=== PATIENT | male | born 1975 | race Hispanic/Latino ===

== ENCOUNTER 2017-09-23 23:39 | Emergency (ER) | payer BC ==
[~2017-09-23] VITALS: Ht 188 cm; Wt 104.3 kg
[~2017-09-23 23:39] MED LIST: ATIVAN1 MG PO
[2017-09-24] MEDS ORDERED: OMEPRAZOLE20 MG PO (02:21)
--- NOTE | 2017-09-24 14:34 | EKG ---
[facility] [address] [place], [place] [address] Signed Normal sinus rhythm Normal ECG Confirmed by MELISA URIBE MD ([id number]) on 09/24/2017 2:34:05 PM Electronically Signed By: MELISA URIBE MD 09/24/17 1434 PATIENT NAME: TAWNYA GALLEGOS Electrocardiogram DATE OF : 75 PHYSICIAN: MELISA URIBE MD REPORT #: [id number] REPORT IS CONFIDENTIAL AND NOT TO BE RELEASED WITHOUT AUTHORIZATION
== END 2017-09-24 02:32 | disposition home or self-care (01) ==
LOC: ED 23:39
DX: R07.9 Chest pain, unspecified (principal); F41.9 Anxiety disorder, unspecified; F17.200 Nicotine dependence, unspecified, uncomplicated; Z79.899 Other long term (current) drug therapy
CPT/HCPCS: 71045; 80053; 84484; 85025; 93005; 93010; 96374; 96375; 99284; J2270; J2405

== ENCOUNTER 2023-10-29 15:47 | Inpatient (IN) | payer OTHER ==
[~2023-10-29] VITALS: Ht 188 cm; Wt 133.0 kg
[~2023-10-29 15:47] MED LIST changes: +OMEPRAZOLE20 MG PO
--- OUTSIDE RECORDS SUMMARY | 2023-10-29 15:48 | XMS ---
PreManage Notification: TAWNYA GALLEGOS [employer] Set Up Operator Events No recent Security Events currently on file CRITERIA MET - [facility] - 2 Visits in 30 Days CARE PROVIDERS HILARIO ROSENBERG Physician Human Resources Executive Current PHONE: Unknown Nolberto has no Care Guidelines for this patient. EAlice VISIT COUNT (12 MO.) [address] TOTAL 4 NOTE: Visits indicate total known visits. ED/UCC VISIT TRACKING (12 MO.) 10/29/2023 15:47 [facility] [place] TYPE: Emergency COMPLAINT: - FOOT PAIN 10/29/2023 14:50 [facility] TYPE: Emergency COMPLAINT: - FOOT INJURY DIAGNOSES: - FOOT INJURY 06/26/2023 22:56 [facility] TYPE: Emergency DIAGNOSES: - Constipation, unspecified - Abdominal Pain, Constipation 05/15/2023 11:32 [facility] [place] TYPE: Emergency DIAGNOSES: - Local infection of the skin and subcutaneous tissue, unspecified - Other acute osteomyelitis, left ankle and foot - Type 2 diabetes mellitus with other skin complications - Type 2 diabetes mellitus with other specified complication - FOOT INJURY INPATIENT VISIT TRACKING (12 MO.) 05/15/2023 11:32 [facility] [place] TYPE: Medical Surgical DIAGNOSES: - 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
[2023-10-29] MEDS ORDERED: CEFTRIAXONE/SODIUM CHLORIDE 1 GM/100 ML PIGGYBACK IV ONE (18:00)
[2023-10-29 18:18] LABS: BASOPHILS 0.2 % (0-2); EOSINOPHILS 0.3 % (0-6); HEMATOCRIT 46.6 % (35.0-50.0); LYMPHOCYTES 27.4 % (24-44); MCH 32.2 (27-36); MCHC 34.4 g/dl (30-36); MCV 93.7 fl (81-99); MONOCYTES 8.4 % (0-12); NEUTROPHILS 63.7 % (39-80); PLATELET COUNT 192 K/uL (140-440); RBC 4.98 M/ul (4.3-5.7); RDW 13.1 (10.5-15.0)
[2023-10-29 18:35] LABS: ALBUMIN 3.2 g/dL (3.4-5.0); ALBUMIN/GLOBULIN RATIO 0.78 (1.1-2.4); ANION GAP 13.6 (7-21); BILIRUBIN, TOTAL 0.4 ng/dL (0.2-1.0); BUN/CREATININE RATIO 15.11 (6.0-28.6); CALCIUM 8.1 mg/dL (8.5-10.1); CREATININE, SERUM 0.86 mg/dL (0.70-1.30); POTASSIUM 3.6 mmol/L (3.5-5.1); PROTEIN, TOTAL 7.3 g/dL (6.4-8.2)
[2023-10-29 18:39] LABS: LACTIC ACID, BLOOD 4.4 mmol/L (0.4-2.0)
[2023-10-29] MEDS ORDERED: SODIUM CHLORIDE 0.9% 1,000 ML IV PRN (19:00)
[2023-10-29 19:22] LABS: ERYTHROCYTE SEDIMENTATION RATE 7
[2023-10-29] MEDS ORDERED: PROCHLORPERAZINE EDISYLATE 10 MG/2 ML VIAL IV PRN (20:30)
[2023-10-29] MEDS ORDERED: GLUCAGON,HUMAN RECOMBINANT 1 MG/ML VIAL SUB-Q PRN (20:30)
[2023-10-29] MEDS ORDERED: IBLOOD GLUCOSE TEST STRIP 1 EA TEST XX PRN (20:30)
[2023-10-29] MEDS ORDERED: DEXTROSE 50% 50 ML SYR IV PRN ×2 (20:30)
[2023-10-29] MEDS ORDERED: LACTATED RINGER'S 1,000 ML IV SCH (20:30)
[2023-10-29] MEDS ORDERED: ondansetron HCL 4 MG/2 ML VIAL IV PRN (20:30)
[2023-10-29] MEDS ORDERED: ACETAMINOPHEN 325 MG TAB PO PRN (20:30)
[2023-10-29] MEDS ORDERED: DEXTROSE 5% 1,000 ML IV PRN (20:30)
[2023-10-29 20:50] LABS: LACTIC ACID, BLOOD 4.4 mmol/L (0.4-2.0)
[2023-10-29] MEDS ORDERED: IBLOOD GLUCOSE TEST STRIP 1 EA TEST VI SCH (21:00)
[2023-10-29] MEDS ORDERED: INSULIN LISPRO 100 UNIT/ML ML SUB-Q SCH (21:00)
[2023-10-29 21:04] VITALS: BP 181/120
[2023-10-29] MEDS ORDERED: LACTATED RINGER'S 1,000 ML IV ONE (21:15)
[2023-10-29] MEDS ORDERED: AMLODIPINE BESY10 MG PO (21:17)
[2023-10-29] MEDS ORDERED: PIPERACILLIN/TAZOBACTAM 3.375 GM in DEXTROSE 5% 100 ML IV SCH (22:00)
[2023-10-29] MEDS ORDERED: DAPTOmycin 500 MG/10 ML VIAL IV SCH (22:00)
[2023-10-29] MEDS ORDERED: hydrALAZINE HCL 20 MG/ML VIAL IV PRN (22:00)
[2023-10-29] MEDS ORDERED: PIPERACILLIN/TAZOBACTAM 3.375 GM VIAL ONE (23:12)
[2023-10-30] VITALS (11 sets, daily range): BP systolic 157–179; BP diastolic 92–109
[2023-10-30] MEDS ORDERED: DEXTROSE 5% 100 ML IV ONE (06:25)
[2023-10-30 06:47] LABS: BASOPHILS 0.4 % (0-2); EOSINOPHILS 0.2 % (0-6); HEMATOCRIT 47.9 % (35.0-50.0); HEMOGLOBIN 16.7 g/dL (12.0-18.0); LYMPHOCYTES 15.3 % (24-44); MCH 32.4 (27-36); MCHC 34.8 g/dl (30-36); MCV 93.1 fl (81-99); MONOCYTES 7.2 % (0-12); NEUTROPHILS 76.9 % (39-80); PLATELET COUNT 192 K/uL (140-440); RBC 5.14 M/ul (4.3-5.7); RDW 12.7 (10.5-15.0)
[2023-10-30 07:05] LABS: ALBUMIN 3.1 g/dL (3.4-5.0); ALBUMIN/GLOBULIN RATIO 0.76 (1.1-2.4); ANION GAP 15.7 (7-21); BILIRUBIN, TOTAL 0.5 ng/dL (0.2-1.0); BUN/CREATININE RATIO 13.09 (6.0-28.6); CALCIUM 8.2 mg/dL (8.5-10.1); CREATININE, SERUM 0.84 mg/dL (0.70-1.30); MAGNESIUM 1.6 mg/dL (1.8-2.4); PHOSPHORUS, INORGANIC 3.3 mg/dL (2.5-4.9); POTASSIUM 3.7 mmol/L (3.5-5.1); PROTEIN, TOTAL 7.2 g/dL (6.4-8.2)
[2023-10-30] MEDS ORDERED: SODIUM CHLORIDE 0.9% 1,000 ML IV SCH ×3 (07:30→13:00)
[2023-10-30] MEDS ORDERED: ENOXAPARIN SODIUM 40 MG/0.4 ML SYR SUB-Q SCH (09:00)
[2023-10-30] MEDS ORDERED: AMLODIPINE BESYLATE 10 MG TAB PO SCH (09:00)
[2023-10-30] MEDS ORDERED: GLIPIZIDE ER5 MG PO (11:03)
[2023-10-30] MEDS ORDERED: hydrALAZINE HCL 20 MG/ML VIAL IV PRN (11:15)
[2023-10-30] MEDS ORDERED: PHARMACY RENAL DOSE ADJUSTMENT 1 DOSE MISC PO SCH (12:00)
[2023-10-30] MEDS ORDERED: MAGNESIUM CHLORIDE 64 MG TABCR PO ONE (16:30)
[2023-10-30] MEDS ORDERED: lisinopriL 5 MG TAB PO SCH (21:00)
[2023-10-30] MEDS ORDERED: ERYTHROMYCIN 3.5 GM TUBE OD SCH (21:30)
[2023-10-31] VITALS (11 sets, daily range): BP systolic 147–167; BP diastolic 92–104
[2023-10-31 05:15] LABS: BASOPHILS 0.4 % (0-2); EOSINOPHILS 0.3 % (0-6); HEMOGLOBIN 16.8 g/dL (12.0-18.0); LYMPHOCYTES 14.5 % (24-44); MCH 32.5 (27-36); MCV 92.8 fl (81-99); MONOCYTES 9.3 % (0-12); NEUTROPHILS 75.5 % (39-80); PLATELET COUNT 188 K/uL (140-440); RBC 5.17 M/ul (4.3-5.7); RDW 13.2 (10.5-15.0)
[2023-10-31 05:29] LABS: ALBUMIN 2.8 g/dL (3.4-5.0); ALBUMIN/GLOBULIN RATIO 0.7 (1.1-2.4); ANION GAP 13.1 (7-21); BILIRUBIN, TOTAL 1.5 ng/dL (0.2-1.0); BUN/CREATININE RATIO 10.22 (6.0-28.6); CALCIUM 7.9 mg/dL (8.5-10.1); CREATININE, SERUM 0.88 mg/dL (0.70-1.30); POTASSIUM 3.1 mmol/L (3.5-5.1); PROTEIN, TOTAL 6.8 g/dL (6.4-8.2)
[2023-10-31] MEDS ORDERED: POTASSIUM CHLORIDE 10 MEQ TABCR PO ONE (09:00)
[2023-10-31] MEDS ORDERED: MAGNESIUM SULFATE 2 GM/50 ML BAG IV ONE (09:00)
[2023-11-01] VITALS (9 sets, daily range): BP systolic 125–163; BP diastolic 55–97
[2023-11-01 05:27] LABS: BASOPHILS 0.6 % (0-2); EOSINOPHILS 1.9 % (0-6); HEMOGLOBIN 16.3 g/dL (12.0-18.0); LYMPHOCYTES 24.3 % (24-44); MCH 32.3 (27-36); MCV 94.8 fl (81-99); MONOCYTES 10.2 % (0-12); PLATELET COUNT 168 K/uL (140-440); RBC 5.06 M/ul (4.3-5.7); RDW 13.1 (10.5-15.0)
[2023-11-01 05:38] LABS: ALBUMIN 2.8 g/dL (3.4-5.0); ALBUMIN/GLOBULIN RATIO 0.7 (1.1-2.4); ANION GAP 13.5 (7-21); BILIRUBIN, TOTAL 0.9 ng/dL (0.2-1.0); BUN/CREATININE RATIO 13.25 (6.0-28.6); CALCIUM 8.1 mg/dL (8.5-10.1); CREATININE, SERUM 0.83 mg/dL (0.70-1.30); POTASSIUM 3.5 mmol/L (3.5-5.1); PROTEIN, TOTAL 6.8 g/dL (6.4-8.2)
[2023-11-01] MEDS ORDERED: SILVER SULFADIAZINE 25 GM TUBE TOP ONE (17:30)
[2023-11-01] MEDS ORDERED: LISINOPRIL5 MG PO (17:51)
[2023-11-01] MEDS ORDERED: ERYTHROMYCIN1 GM OD (17:52)
== END 2023-11-01 18:52 | disposition home or self-care (01) | DRG 935 ==
LOC: ED 15:47 → MS 20:26
PROVIDERS: Emergency Medicine; ADMIT Family Medicine; ATTEND Family Medicine
PROC: 0HBMXZZ Excision of Right Foot Skin, External Approach (ICD-10-PCS; principal; 2023-11-01)
DX: T25.231A Burn of second degree of right toe(s) (nail), initial encounter (principal); E87.20 Acidosis, unspecified; E11.621 Type 2 diabetes mellitus with foot ulcer; L97.519 Non-pressure chronic ulcer of other part of right foot with unspecified severity; I10 Essential (primary) hypertension; E11.65 Type 2 diabetes mellitus with hyperglycemia; E87.6 Hypokalemia; E83.42 Hypomagnesemia; F17.210 Nicotine dependence, cigarettes, uncomplicated; Z89.412 Acquired absence of left great toe
CPT/HCPCS: 36415; 73630; 80053; 82553; 83036; 83605; 83735; 84100; 85025; 85651; 86140; 87070; 87075; 87205; 94760; A9270; J0360; J0696; J0878; J1650; J1815; J2543; J3475; J7030; J7121